=== PATIENT | male | born 2000 | race African-American/Black ===

== ENCOUNTER 2019-12-25 00:29 | Emergency (ER) | payer MEDICAID ==
[~2019-12-25] VITALS: Ht 180.3 cm; Wt 54.0 kg
[2019-12-25 02:44] LABS: CLARITY URINE CLEAR (CLEAR); COLOR URINE YELLOW (YELLOW); KETONES URINE NEGATIVE (NEGATIVE); LEUKOCYTE ESTERASE URINE NEGATIVE (NEGATIVE); NITRITE URINE NEGATIVE (NEGATIVE); OCCULT BLOOD URINE NEGATIVE (NEGATIVE); PH URINE 5.5 (4.5-8.0); PROTEIN URINE NEGATIVE (NEGATIVE); SPECIFIC GRAVITY URINE 1.006 (1.005-1.030); UROBILINOGEN URINE 0.2 E.U./dL (0.2-1.0)
[2019-12-25 03:14] VITALS: BP 110/70
== END 2019-12-25 03:36 | disposition home or self-care (01) ==
LOC: ER 00:29
DX: R35.0 Frequency of micturition (principal); Z91.018 Allergy to other foods
CPT/HCPCS: 81003; 99283